=== PATIENT | female | born 1950 | race Caucasian/White ===

== ENCOUNTER 2018-03-04 00:16 | Inpatient (IN) | payer MEDICARE, OTHER ==
[~2018-03-04] VITALS: Ht 157.5 cm; Wt 86.2 kg
[2018-03-04] VITALS (9 sets, daily range): BP systolic 88–133; BP diastolic 40–63
[2018-03-04] MEDS ORDERED: LISINOPRIL20 MG PO (00:29)
[2018-03-04] MEDS ORDERED: METFORMIN HCL500 MG PO (00:29)
[2018-03-04] MEDS ORDERED: SYNTHROID112 MC1 PO (00:30)
[2018-03-04 00:46] LABS: ABSOLUTE BASOPHILS 0.1 thou/uL (0.0-0.2); ABSOLUTE EOSINOPHILS 0.5 thou/uL (0.0-0.7); ABSOLUTE LYMPHOCYTES 5.7 thou/uL (0.8-5.3); ABSOLUTE MONOCYTES 0.3 thou/uL (0.0-1.2); ABSOLUTE NEUTROPHILS 5.5 thou/uL (1.6-8.1); BASOPHILS 0.8 %; EOSINOPHILS 3.7 %; HEMATOCRIT 49.5 % (37.0-47.0); HEMOGLOBIN 16.3 gm/dL (12.0-15.0); LYMPHOCYTES 47.4 %; MCH 28.5 pg (26.0-34.0); MCV 86.5 fL (80.0-100.0); MONOCYTES 2.5 %; MPV 8.2 fl. (7.2-11.1); NUCLEATED RBCS 0 /100WBC; PLATELET COUNT* 502 thou/uL (150-400); POLYS 45.6 %; RBC 5.72 mil/uL (4.20-5.00); RDW-CV 13.8 % (10.5-14.5); WBC 12.1 thou/uL (4.0-11.0)
[2018-03-04 00:53] LABS: ANION GAP 11 mmol/L (7-16); BUN 15 mg/dL (7-18); CALCIUM 9.7 mg/dL (8.5-10.1); CHLORIDE 102 mmol/L (98-107); CO2 29 mmol/L (21-32); CREATININE 1.2 mg/dL (0.6-1.3); GLUCOSE 156 mg/dL (70-99); POTASSIUM 3.4 mmol/L (3.5-5.1); SODIUM 142 mmol/L (136-145)
[2018-03-04 01:03] LABS: ALBUMIN 3.6 g/dL (3.4-5.0); ALKALINE PHOSPHATASE 48 U/L (46-116); LIPASE 221 U/L (73-393); NT-PRO BRAIN NAT PEPTIDE 69 pg/mL (<300); SGOT 29 U/L (15-37); SGPT 44 U/L (30-65); TOTAL BILIRUBIN 0.4 mg/dL (<0.1-1.0); TOTAL PROTEIN 7.9 g/dL (6.4-8.2); TROPONIN-I LEVEL <0.06 ng/mL (<0.06)
[2018-03-04 01:14] LABS: INR 1.1; PROTIME 10.5 Seconds (9.20-11.50)
--- NOTE | 2018-03-04 03:46 | NUR ---
ADMITTED TO ICU 5 @ 0240, SEE ASSESSMENT. VSS. PT DENIES CHEST PAIN AND SOA. IVF INFUSING ORDERED. ASSISTED TO BSC WITH STANDBY ASSIST ONLY. PT REPORTED A "BOIL" TO THE LEFT BUTTOCK WHICH HAS BEEN PRESENT X1-2 YEARS. SHE STATES THAT APPROXIMATELY A YEAR AGO IT WOULD FREQUENTLY BLEED AND WEEP PURULENT DRAINAGE AND WAS SUBSEQUENTLY LANCED BY A SURGEON. SHE STATES IT HAS NOT PRODUCED DRAINAGE RECENTLY BUT THAT IT IS STILL PRESENT. THE AREA IS APPROXIMATELY 2CM IN LENGTH, FIRM TO THE TOUCH, AND PURPLISH IN COLOR. IT IS NOT OPEN AND DOES NOT LOOK BLISTERED OR FLUID FILLED. PT DENIES PAIN IN THE AREA. PT ORIENTED TO ROOM AND CALL LIGHT USE. DENIES ANY CONCERNS AT THIS TIME. CALL LIGHT WITHIN REACH.
[2018-03-04 03:58] LABS: URINE BILIRUBIN NEGATIVE (Negative); URINE BLOOD NEGATIVE (Negative); URINE CLARITY CLEAR; URINE COLOR YELLOW; URINE GLUCOSE-RANDOM TRACE (Negative); URINE KETONES 1+ (Negative); URINE LEUKOCYTES-REFLEX 1+ (Negative); URINE NITRITE-REFLEX NEGATIVE (Negative); URINE PROTEIN 2+ (Negative); URINE SPECIFIC GRAVITY >= 1.030 (1.005-1.030); URINE UROBILINOGEN 0.2 E.U./dl (0.2-1.0)
[2018-03-04 04:00] LABS: AMP/METHAMP Negative (Negative); BARBITURATES Negative (Negative); BENZODIAZEPINES Negative (Negative); COCAINE Negative (Negative); METHADONE Negative (Negative); OPIATES Negative (Negative); PCP Negative (Negative); THC Negative (Negative)
[2018-03-04 04:50] LABS: SQUAMOUS >10 Many /LPF (0-3)
[2018-03-04 04:51] LABS: COARSE GRANULAR CASTS 4-10 Moderate /LPF (None Seen); HYALINE CASTS 4-10 Moderate /LPF (None Seen); URINE RBC None Seen /HPF (0-2)
[2018-03-04 04:52] LABS: CRYSTALS None Seen /LPF (None Seen); WBC CASTS 0-3 /LPF
[2018-03-04 05:06] LABS: PLATELET ESTIMATE ADEQUATE
[2018-03-04 05:07] LABS: CLUMPED PLTS FEW; LARGE PLATELETS OCCASIONAL
[2018-03-04 07:42] LABS: HEMATOCRIT 39.5 % (37.0-47.0); MCH 28.7 pg (26.0-34.0); MCHC 32.6 g/dL (28.0-37.0); MCV 87.8 fL (80.0-100.0); MPV 8.7 fl. (7.2-11.1); NUCLEATED RBCS 0 /100WBC; RBC 4.49 mil/uL (4.20-5.00); RDW-CV 13.4 % (10.5-14.5); WBC 12.1 thou/uL (4.0-11.0)
[2018-03-04 07:45] LABS: HEMOGLOBIN 12.9 gm/dL (12.0-15.0)
[2018-03-04 07:46] LABS: PLATELET COUNT* 251 thou/uL (150-400)
[2018-03-04 07:53] LABS: CALCIUM 8.3 mg/dL (8.5-10.1); CREATININE 1.2 mg/dL (0.6-1.3); MAGNESIUM 1.7 mg/dL (1.8-2.4)
[2018-03-04 07:57] LABS: POTASSIUM 4.9 mmol/L (3.5-5.1)
[2018-03-04 08:12] LABS: ABSOLUTE BASOPHILS 0.1 thou/uL (0.0-0.2); ABSOLUTE LYMPHOCYTES 0.7 thou/uL (0.8-5.3); ABSOLUTE MONOCYTES 0.1 thou/uL (0.0-1.2); ABSOLUTE NEUTROPHILS 11.1 thou/uL (1.6-8.1); PLATELET ESTIMATE ADEQUATE
--- NOTE | 2018-03-04 10:52 | NUR ---
SPOKE WITH PT, SHE IS ALERT AND ORIENTED AND ABLE TO ANSWER ALL QUESTIONS. SHE LIVES AT HOME WITH HER , IS NORMALLY ACTIVE AND INDEP. PT DENIES ANY DISCHARGE NEEDS. PT HOPES TO BE DISCHARGED SOON. DISCUSSED ROLE OF CASE MGT, WILL CONTINUE TO FOLLOW.
--- NOTE | 2018-03-04 11:47 | EKG ---
[place] [address] ELECTROCARDIOGRAM REPORT Name: ZENIA HIDALGOHA Mika Room: [address] IN [facility]#: [id number] Admission: 03/04/18 Attend Phys: Aura Corcoran MD Discharge: Date of : 52 Report #: [id number] THIS REPORT FOR: //name// [facility] ED Test Date: 2018-03-04 Test Time: 00:37:19 Pat Name: PONCE HIDALGO Department: Room: Gender: F Mothers Helper: : 1950 Requested By: Dorina Schaefer Order Number: [id number] MD: Esau Evans Measurements Intervals [place] Rate: 85 P: OR: QRS: 70 QRSD: 96 T: 49 QT: 419 QTc: 499 Interpretive Statements sinus rhythm artifact noted Borderline prolonged QT interval No previous ECG available for comparison Electronically Signed On 03-04-2018 11:47:09 CDT by Esau Evans [email or web address] <ELECTRONICALLY SIGNED> By: Esau Evans MD, [facility] 03/04/18 1147 0037 0037 Esau Evans MD, FACC /EPI
--- NOTE | 2018-03-04 18:41 | NUR ---
Pt up to BSC throughout shift. Denies symptoms of allergic reaction. IVF infusing. Pt tolerating PO. BG remain elevated. Insulin given. at BS and updated on plan of care
[2018-03-05 01:00] VITALS: BP 118/69
[2018-03-05 03:35] LABS: HEMATOCRIT 35.5 % (37.0-47.0); HEMOGLOBIN 11.7 gm/dL (12.0-15.0); MCH 28.8 pg (26.0-34.0); MCV 87.1 fL (80.0-100.0); MPV 8.8 fl. (7.2-11.1); RBC 4.07 mil/uL (4.20-5.00); RDW-CV 13.6 % (10.5-14.5); WBC 13.3 thou/uL (4.0-11.0)
[2018-03-05 04:01] LABS: CALCIUM 8.8 mg/dL (8.5-10.1); MAGNESIUM 1.9 mg/dL (1.8-2.4); POTASSIUM 5.1 mmol/L (3.5-5.1)
[2018-03-05 05:00] VITALS: BP 127/66
--- NOTE | 2018-03-05 05:15 | NUR ---
PROGRESSING TOWARD GOALS. VSS. PT HAS DENIED PAIN AND SOA THROUGHOUT THE NIGHT. PT TURNS SELF INDEPENDENTLY. CALL LIGHT WITHIN REACH.
[2018-03-05 07:36] VITALS: BP 123/57
[2018-03-05] MEDS ORDERED: PEPCID20 MG PO (07:37)
[2018-03-05] MEDS ORDERED: ZYRTEC10 M5 PO (07:37)
[2018-03-05] MEDS ORDERED: PREDNISONE 10 M10 M1 PO (07:37)
[2018-03-05] MEDS ORDERED: METFORMIN HCL500 MG PO (07:38)
--- NOTE | 2018-03-05 08:50 | NUR ---
PATIENT CARE ASSUMED AT 0700. PATIENT AOX4. UP AD KRISTEN TO BSC. STATES HER ONLY PAIN IS MILD ACHING FROM ICU BED, DENIES NEEDS FOR INTEVENTION. VITALS WNL. PATIENT TO DISCHARGE THIS AFTERNOON IF REMAINING STEADY ON FEET, REMAINS WITHOUT SIGNS OF ANAPHYLAXIS.
[2018-03-05 08:53] VITALS: BP 123/57
[2018-03-05 09:04] VITALS: BP 123/57
--- NOTE | 2018-03-05 09:40 | NUR ---
PATIENT AMBULATED THROUGHOUT UNIT WITH NURSE AT SIDE. STEADY GAIT INDEPENDENTLY.
--- NOTE | 2018-03-05 10:02 | NUR ---
PATIENT CALLED OUT, REPORTED SHE COULDNT "CATCH HER BREATH". 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 REMAINS ON ROOM AIR WITH O2 SAT 94%. RESPIRATORY RATE 15-20. PATIENT HAD JUST AMBULATED, UP TO COMMODE TO HAVE BOWEL MOVEMENT. PATIENT SALINE LOCKED, RR EVEN/UNLABORED/CLEAR. INFORMED PATIENT REST FOR A LITTLE WHILE AND CALL NURSE IF SYMPTOMS WORSEN/CONTINUE.
[2018-03-05 12:45] VITALS: BP 143/62
--- NOTE | 2018-03-05 15:15 | NUR ---
PATIENT DISCHARGED HOME. DR AGUIRRE NOTIFIED THAT SCRIPT WAS NOT WRITTEN FOR EPI PEN. ORDERS TO CALL EPI PEN OVER TO PHARMACY. CALLED INTO PATIENT'S [facility]. PATIENT EDUCATED ON THIS. DISCHARGE INSTRUCTIONS GIVEN. ALL QUESTIONS ANSWERED. ALL BELONGINGS TAKEN WITH PATIENT AND SPOUSE. IV DISCONTINUED BY THIS NURSE. PATIENT AMBULATORY TO CAR WITH SPOUSE, REFUSED WHEELCHAIR. LEFT UNIT AT 1515.
== END 2018-03-05 15:15 | disposition home or self-care (01) | DRG 916 ==
LOC: M.ERS 00:16 → M.TBA-ER 01:45 → M.ICU 01:45
PROVIDERS: Emergency Medicine; Internal Medicine; ADMIT Internal Medicine
DX: T88.6XXA Anaphylactic reaction due to adverse effect of correct drug or medicament properly administered, initial encounter (principal); I95.9 Hypotension, unspecified; K58.9 Irritable bowel syndrome, unspecified; T39.395A Adverse effect of other nonsteroidal anti-inflammatory drugs [NSAID], initial encounter; T48.1X5A Adverse effect of skeletal muscle relaxants [neuromuscular blocking agents], initial encounter; E03.9 Hypothyroidism, unspecified; G89.29 Other chronic pain; I10 Essential (primary) hypertension; E11.9 Type 2 diabetes mellitus without complications; Z88.8 Allergy status to other drugs, medicaments and biological substances; Z90.710 Acquired absence of both cervix and uterus; Z87.891 Personal history of nicotine dependence; Z79.84 Long term (current) use of oral hypoglycemic drugs; Z79.899 Other long term (current) drug therapy; Y92.89 Other specified places as the place of occurrence of the external cause

== ENCOUNTER 2021-09-16 08:33 | Emergency (ER) | payer MEDICARE, OTHER ==
[~2021-09-16] VITALS: Ht 157.5 cm; Wt 59.0 kg
[~2021-09-16 08:33] MED LIST: LISINOPRIL20 MG PO; METFORMIN HCL500 MG PO; PEPCID20 MG PO; PREDNISONE 10 M10 M1 PO; SYNTHROID112 MC1 PO; ZYRTEC10 M5 PO
[2021-09-16 09:34] LABS: HEMATOCRIT 40.5 % (37.0-47.0); HEMOGLOBIN 13.7 gm/dL (12.0-15.0); MCH 28.9 pg (26.0-34.0); MCHC 33.9 g/dL (28.0-37.0); MCV 85.4 fL (80.0-100.0); MPV 7.9 fl. (7.2-11.1); NUCLEATED RBCS 0 /100WBC; PLATELET COUNT* 240 thou/uL (150-400); RBC 4.75 mil/uL (4.20-5.00); WBC 3.4 thou/uL (4.0-11.0)
[2021-09-16 09:49] LABS: CALCIUM 8.6 mg/dL (8.5-10.1); POTASSIUM 3.3 mmol/L (3.5-5.1)
[2021-09-16 09:59] LABS: ALBUMIN 3.5 g/dL (3.4-5.0); TOTAL BILIRUBIN 0.6 mg/dL (<0.1-1.0); TOTAL PROTEIN 7.8 g/dL (6.4-8.2)
[2021-09-16 10:04] LABS: URINE BLOOD NEGATIVE (Negative); URINE CLARITY CLEAR; URINE COLOR YELLOW; URINE GLUCOSE-RANDOM NEGATIVE (Negative); URINE KETONES 2+ (Negative); URINE NITRITE-REFLEX NEGATIVE (Negative); URINE PROTEIN 2+ (Negative); URINE SPECIFIC GRAVITY 1.025 (1.005-1.030); URINE UROBILINOGEN 0.2 E.U./dl (0.2-1.0)
[2021-09-16 10:06] LABS: URINE BILIRUBIN 1+ (Negative); URINE LEUKOCYTES-REFLEX 2+ (Negative)
[2021-09-16 10:15] LABS: ABSOLUTE LYMPHOCYTES 1.3 thou/uL (0.8-5.3); ABSOLUTE MONOCYTES 0.6 thou/uL (0.0-1.2); ABSOLUTE NEUTROPHILS 1.5 thou/uL (1.6-8.1)
[2021-09-16 10:16] LABS: PLATELET ESTIMATE ADEQUATE
[2021-09-16 10:20] LABS: CASTS None Seen /LPF (None Seen); SQUAMOUS 4-10 Moderate /LPF (0-3); URINE RBC 3-10 Few /HPF (0-2); URINE WBC-REFLEX >25 Many /HPF (0-5)
[2021-09-16 10:21] LABS: CRYSTALS None Seen /LPF (None Seen)
[2021-09-16] MEDS ORDERED: ZOFRAN ODT4 MG DISSOLVE (10:40)
[2021-09-16] MEDS ORDERED: DOXYCYCLINE 10100 MG PO (10:40)
[2021-09-16 11:00] VITALS: BP 132/59
[2021-09-16] MEDS ORDERED: DEXAMETHASONE 44 M1 PO (16:56)
--- NOTE | 2021-09-17 09:49 | EKG ---
[place] [address] ELECTROCARDIOGRAM REPORT Name: GWENPONCE Romero Room: [facility]#: [id number] Admission: 09/16/21 Attend Phys: Discharge: 09/16/21 Date of : 52 Date of Service: 09/16/21914 Report #: [id number] THIS REPORT FOR: //name// [facility] ED Test Date: 2021-09-16 Test Time: 09:15:18 Pat Name: PONCE HIDALGO Department: Room: Gender: Bath Attendant: AMY : 1950 Requested By: Kp Ashley Order Number: [id number] MD: Esau Evans Measurements Intervals [place] Rate: 84 P: 72 CO: 162 QRS: 35 QRSD: 102 T: 39 QT: 399 QTc: 472 Interpretive Statements Sinus rhythm Consider left atrial enlargement Compared to ECG 03/04/2018 00:37:19 No significant changes Electronically Signed On 09-17-2021 9:49:42 BIOINFORMATICS ENGINEER by Esau Evans [email or web address] <ELECTRONICALLY SIGNED> By: Esau Evans MD, [facility] 09/17/21 0949 4 Esau Evans MD, [facility] /EPI
== END 2021-09-16 11:00 | disposition home or self-care (01) ==
LOC: M.ERS 08:33
PROVIDERS: Family Medicine
DX: U07.1 COVID-19 (principal); N39.0 Urinary tract infection, site not specified; R05.9 Cough, unspecified; R53.83 Other fatigue; R09.81 Nasal congestion; R11.0 Nausea; Z90.710 Acquired absence of both cervix and uterus; Z98.890 Other specified postprocedural states; Z88.8 Allergy status to other drugs, medicaments and biological substances; Z79.899 Other long term (current) drug therapy